=== PATIENT | male | born 1960 | race Native Hawaiian/Other Pacific Islander ===

== ENCOUNTER 2022-03-15 21:11 | Emergency (ER) | payer OTHER ==
[~2022-03-15] VITALS: Ht 190.5 cm; Wt 82.1 kg
[~2022-03-15 21:11] MED LIST: ACET-206 PO; CHOL100034 PO; CYAN10009 IM; MAGNSUS68 PO; QUET25TA2 PO; VITAMIN D1000 UNI1 PO
[2022-03-15 21:19] VITALS: BP 123/77; TEMP 98.9
[2022-03-15 22:13] LABS: PLATELET COUNT 236 K/uL (142-355)
[2022-03-15 22:27] LABS: POTASSIUM 4.1 mmol/L (3.6-5.2)
[2022-03-16] MEDS ORDERED: MILK OF MA400 MG/5 M PO (08:48)
[2022-03-16] MEDS ORDERED: TYLENOL325 MG PO (08:49)
== END 2022-03-15 22:50 | disposition still patient (30) ==
LOC: ED 21:11
PROVIDERS: Emergency Medicine Emergency Medical Services
DX: G30.9 Alzheimer's disease, unspecified (principal); F02.81 Dementia in other diseases classified elsewhere, unspecified severity, with behavioral disturbance; Z11.52 Encounter for screening for COVID-19; Z04.6 Encounter for general psychiatric examination, requested by authority
CPT/HCPCS: 36415; 80053; 80307; 80320; 81000; 85027; 87635; 93005; 99283; U0003